=== PATIENT | female | born 1970 | race Hispanic/Latino ===

== ENCOUNTER 2018-11-08 07:32 | Emergency (ER) | payer MEDICAID, OTHER ==
--- NOTE | 2018-11-08 10:33 | Emergency Department Report ---
HPI - General Chief Complaint: Nausea/Vomiting/Diarrhea Time Seen by Provider: 11/08/18 10:24 - HPI HPI: Room 25 The patient is a 47-year-old female presenting with the chief complaint of food impaction. The patient states for 2 years she said difficulty swallowing as it frequently feels as though food gets stuck (usually after consuming alcohol). Yesterday at approximately 15:00 the patient states she was eating ribs and again encountered the difficulty swallowing. She states it felt as though the food got stuck so she vomited only a small amount of the food came out. Patient states he still feels as though there is food stuck in her esophagus. Patient states since 15:00 she's been unable to tolerate anything by mouth including water. The patient states she's never seen a physician about the above complaints in the past Location: GI system Duration: [See above] Quality: Feels as though food is stuck in her esophagus Severity: [See above] Modifying factors: [see above] Context: [see above] Mode of transportation: [not driving] ED Past Medical Hx - Past Medical History Previous Medical History?: No - Surgical History Past Surgical History?: No - Family History Family history: no significant - Social History Smoking Status: Never Smoker Substance Use Type: None (denies illicit drug use), Alcohol (occasional) - Medications Home Medications: Home Medications Medication Instructions Recorded Confirmed Last Taken Type Famotidine [Pepcid] 20 mg PO BID #30 tablet 11/08/18 Unknown Rx ED Review of Systems ROS: Stated complaint: MEAT STUCK IN THROAT Other details as noted in HPI Constitutional: no symptoms reported Eyes: denies: eye pain ENT: denies: throat pain Respiratory: no symptoms reported Cardiovascular: denies: chest pain Endocrine: no symptoms reported Gastrointestinal: vomiting, other (food impaction) Musculoskeletal: denies: back pain Neurological: denies: headache Physical Exam - Physical Exam Vital Signs: Vital Signs 11/08/18 07:54 Temperature 97.7 F Pulse Rate 83 Respiratory 16 Rate Blood Pressure 138/86 O2 Sat by Pulse 98 Oximetry Physical Exam: GENERAL: The patient is well-developed well-nourished female lying on stretcher not appearing to be in acute distress. Holding emesis bag. [] HEENT: Normocephalic. Atraumatic. Extraocular motions are intact. Patient has moist mucous membranes. NECK: Supple. No stridor CHEST/LUNGS: Clear to auscultation. There is no respiratory distress noted. HEART/CARDIOVASCULAR: Regular. There is no tachycardia. There is no gallop rub or murmur. ABDOMEN: Abdomen is soft, nontender. Patient has normal bowel sounds. There is no abdominal distention. SKIN: There is no rash. There is no edema. There is no diaphoresis. NEURO: The patient is awake, alert, and oriented. The patient is cooperative. The patient has normal speech MUSCULOSKELETAL: There is no evidence of acute injury. ED Course Vital Signs 11/08/18 07:54 Temperature 97.7 F Pulse Rate 83 Respiratory 16 Rate Blood Pressure 138/86 O2 Sat by Pulse 98 Oximetry - Consultations Consultation #1: 11/08/18 10:29 Gastroenterology paged 11/08/18 10:32 Case discussed with Tamika-wilfredo roberto Consultation #2: 11/08/18 15:22 Discussed with Tamika-patient may be discharged home with medication for GERD ED Medical Decision Making - Differential Diagnosis food impaction Critical care attestation.: If time is entered above; I have spent that time in minutes in the direct care of this critically ill patient, excluding procedure time. ED Disposition Clinical Impression: Esophageal obstruction due to food impaction Disposition: DC-01 TO HOME OR SELFCARE Is pt being admited?: No Does the pt Need Aspirin: No Condition: Stable Instructions: Food Impaction (ED) Additional Instructions: Return to the emergency department immediately should you develop worsening symptoms, fever, inability to tolerate food or liquid or any other concerns. Prescriptions: Famotidine [Pepcid] 20 mg PO BID #30 tablet Referrals: HERIBERTO KRISHNAN MD [Primary Care Provider] - 3-5 Days ROBLES YANEZ MD [Staff Physician] - 3-5 Days Time of Disposition: 15:23
--- NOTE | 2018-11-08 11:01 | Gastroenterology Consultation ---
<LEO CARRIZALES - Last Filed: 11/08/18 11:02> History of Present Illness - Reason for Consult Consult date: 11/08/18 food impaction Requesting physician: DONTA ESTEVES - History of Present Illness Patient is a 47 y/o female with no significant past medical history who presented to ED with c/o food impaction to which GI has been consulted. This morning patient was resting on stretcher in mild distress 2/2 food impaction and inability to tolerate anything by mouth, even saliva (spitting into emesis bag). She reports dysphagia to solids x 2 years. States she was eating ribs yesterday at approximately 3:00 pm when a piece of meat got stuck in her throat after swallowing and she has been unable to vomit it up after multiple attempts. Admits to associated mild chest discomfort but denies fever, SOB, wt loss, abd pain, signs of bleeding, or LGI symptoms. Has occasional heartburn that is worse after drinking alcohol. Not taking any acid-reflux medication at home. No prior EGD. No Fhx of GI cancers. Past History Past Medical History: No medical history Past Surgical History: No surgical history Social history: other (occasional alcohol ). denies: smoking Medications and Allergies Allergies Allergy/AdvReac Type Severity Reaction Status Date / Time Penicillins Allergy Rash Verified 11/08/18 07:58 Active Meds: Active Medications Sodium Chloride (Nacl 0.9% 1000 Ml) 1,000 mls @ 999 mls/hr IV ONCE ONE Stop: 11/08/18 11:30 medications reviewed/updated as required Review of Systems - Review of Systems All systems: negative Gastrointestinal: vomiting, heartburn, other (food impaction with associated CP) Exam - Constitutional Vital Signs: Temp Pulse Resp BP Pulse Ox 97.7 F 83 16 138/86 98 11/08/18 07:54 11/08/18 07:54 11/08/18 07:54 11/08/18 07:54 11/08/18 07:54 General appearance: mild distress - EENT Eyes: PERRL, EOM intact ENT: hearing intact - Respiratory Respiratory: bilateral: CTA - Cardiovascular Rhythm: regular Heart Sounds: Present: S1 & S2 - Gastrointestinal General gastrointestinal: Present: soft, non-tender, non-distended, normal bowel sounds - Neurologic Neurological: alert and oriented x3 Assessment and Plan 1.food impaction 2.dysphagia 3.GERD -patient reports a hx of dysphagia x 2 years with solids and occasional heartburn, with a piece of meat getting stuck in her esophagus yesterday while eating ribs. -will schedule for EGD today -NPO now -give 1mg of glucagan now -start on PPI -continue supportive care -further recommendations to follow <ROBLES YANEZ - Last Filed: 11/08/18 12:47> Exam - Constitutional Vital Signs: Temp Pulse Resp BP Pulse Ox 97.7 F 81 18 144/86 98 11/08/18 07:54 11/08/18 11:55 11/08/18 11:55 11/08/18 11:55 11/08/18 11:55 - Labs Lab Results: Laboratory Results - last 24 hr 11/08/18 12:35 Urine HCG, Qual Negative Assessment and Plan Pt seen and examined. Likely GERD-induced stricture. Will do EGD. Then, chronic PPI, and f/u as outpatient.
[2018-11-08] MEDS: GLUCAGEN IV ONE ×2 (11:37→12:26)
[2018-11-08] MEDS: PROTONIX IV ONE ×2 (11:37→11:56)
[2018-11-08] MEDS: NACL 0.9% 1000 ML 1,000 ML IV ONE ×2 (11:37→11:56)
[2018-11-08] MEDS ORDERED: GLUCAGEN ONE (12:22)
[2018-11-08 12:30] LABS: HCG Qualitative,Urine Negative (Negative)
--- NOTE | 2018-11-08 12:32 | Anesthesia Consultation ---
Anesthesia Consult and Med Hx Date of service: 11/08/18 - Airway Anesthetic Teeth Evaluation: Good ROM Head & Neck: Adequate Mental/Hyoid Distance: Adequate Mallampati Class: Class II Intubation Access Assessment: Probably Good - Pulmonary Exam CTA: Yes - Cardiac Exam Cardiac Exam: RRR - Pre-Operative Health Status ASA Pre-Surgery Classification: ASA2 Proposed Anesthetic Plan: General - Pulmonary Hx Smoking: No Hx Asthma: No Hx Respiratory Symptoms: No SOB: No - Cardiovascular System Hx Hypertension: No Hx Heart Attack/AMI: No Hx Percutaneous Transluminal Coronary Angioplasty (PTCA): No Hx Cardia Arrhythmia: No - Central Nervous System Hx Seizures: No CVA: No - Gastrointestinal Hx Gastroesophageal Reflux Disease: No (hx occasional dysphagia to solids x2yrs) - Endocrine Hx Renal Disease: No Hx Liver Disease: No Hx Insulin Dependent Diabetes: No Hx Non-Insulin Dependent Diabetes: No Hx Thyroid Disease: No - Other Systems Hx Alcohol Use: Yes (occasional) Hx Substance Use: No Hx Obesity: Yes - Additional Comments Anesthesia Medical History Comments: No hx anesthetic complications. Reports sensation of "food stuck in throat" since 11/07/18 1500 after eating. Unable to tolareate PO since then. Reports nausea and "spitting up." No significant emesis. Will plan GETA/RSI given aspiration risk.
--- NOTE | 2018-11-08 12:33 | Anesthesia Day of Surgery ---
Anesthesia Day of Surgery - Day of Surgery Patient Examined: Yes Patient H&P Reviewed: Yes Patient is NPO: Yes (see anes consult note for details) Beta Blockers: No
[2018-11-08] MEDS ORDERED: SUBLIMAZE ONE (12:50)
[2018-11-08] MEDS ORDERED: DIPRIVAN 10 MG/ML IV ONE (12:51)
[2018-11-08] MEDS ORDERED: PROVENTIL IH PRN (13:20)
[2018-11-08] MEDS ORDERED: PROVENTIL IH ONE (13:26)
[2018-11-08 15:14] VITALS: BP 137/73
--- NOTE | 2018-11-08 15:24 | Post Anesthesia Evaluation ---
- Post Anesthesia Evaluation Patient Participated: Yes Airway Patent: Yes Stable Respiratory Function: Yes Nausea/Vomiting: No Temp > 96.8F: Yes Pain Manageable: Yes Adequeate Hydration: Yes Anesthesia Complications: No Other Comments: Patient experienced significant coughing post-extubation without hypoxia. Provided additional hx of "mild" asthma and "rare" smoking. Symptoms improved with albuterol neb. Transferred back to ED for further care and final disposition.
--- NOTE | 2018-11-08 17:35 | Post Operative Note ---
Pre-op diagnosis: Esophageal food impaction Post-op diagnosis: same (2. Distal esophageal stenosis) Findings: 1. Food bolus encountered in esophagus at 38 cm, rib meat with cartilage. Removed with snare. 2. Mild distal esophageal stenosis at Z-line at 40 cm from incisors. 3. Otherwise normal EGD. Procedure: EGD with food bolus removal Anesthesia: CATINA Surgeon: ROBLES YANEZ Estimated blood loss: none Pathology: none Condition: stable Disposition: PACU (May be discharged after recovery, and follow up as outpatient. Go home on chronic PPI.)
--- NOTE | 2018-11-08 17:57 | Operative Report ---
UPPER ENDOSCOPY REPORT PROCEDURE: Upper endoscopy with food bolus removal. PREOPERATIVE DIAGNOSIS: Food impaction of distal esophagus. POSTOPERATIVE DIAGNOSIS: Food impaction of distal esophagus and distal esophageal stenosis. SEDATION: General anesthesia with endotracheal intubation by Anesthesia. HISTORY: The patient is a 47-year-old woman with a 2-year history of intermittent dysphagia to solids. Yesterday, she ate barbecued ribs and developed food impaction with inability to swallow saliva. DESCRIPTION OF PROCEDURE: Indications, risks, and benefits were explained and consent was obtained. The patient was sedated and intubated. [employer] video upper endoscope was passed through the mouth and oropharynx into the distal esophagus where a food bolus was encountered, which precluded further scope passage. This had to be manually removed using a snare and came out primarily in one large chunk, which showed gristle or cartilage in it. Subsequently, scope was reintroduced and passed into the descending duodenum and then gradually withdrawn with close inspection of mucosa. FINDINGS: 1. Food impaction in distal esophagus -- removed. 2. Mild distal esophageal stenosis at 40 cm from the incisors, at the site of the Z-line, through which the scope passed readily. 3. Otherwise, normal esophagus. 4. Normal appearing gastric antrum, fundus, body, and cardia. 5. Normal appearing duodenal bulb and duodenum. The patient tolerated the procedure well without immediate complication. IMPRESSION: 1. Distal esophageal stenosis -- with food bolus impaction -- removed. 2. Otherwise, normal endoscopy. PLAN: 1. Chronic proton pump inhibitors for now. 2. Follow up as an outpatient in several weeks for repeat endoscopy and dilation. JOB# [id number] HRC/NTS
== END 2018-11-08 15:43 | disposition home or self-care (01) ==
LOC: ED 07:32
DX: T18.120A Food in esophagus causing compression of trachea, initial encounter (principal); Z88.0 Allergy status to penicillin; X58.XXXA Exposure to other specified factors, initial encounter; Y93.89 Activity, other specified; Y92.89 Other specified places as the place of occurrence of the external cause; Y99.8 Other external cause status
CPT/HCPCS: 43247; 81025; 96361; 96374; 99283; C9113; J2704; J3010; J7030; J1610

== ENCOUNTER 2019-01-14 06:38 | Emergency (ER) | payer MEDICAID ==
[2019-01-14 06:49] VITALS: BP 166/81
--- NOTE | 2019-01-14 07:59 | Emergency Department Report ---
ED Upper Extremity Inj HPI - General Chief Complaint: Extremity Injury, Upper Stated Complaint: LEFT ARM NUMBNESS Time Seen by Provider: 01/14/19 07:42 Source: patient Mode of arrival: Ambulatory Limitations: No Limitations - History of Present Illness Initial Comments: This is a 48-year-old female presents with left shoulder pain radiating to fingers for one day. Patient states yesterday afternoon she started feeling pain in the left shoulder radiating to her fingers. She is now complaining of some numbness and tingling to the tips of fingers and pain to before meals joint with range of motion. He currently reports pain is 5 out of 10 on pain scale and a shooting achy sensation. Patient denies recent injury, warmth, swelling, weakness. MD Complaint: Injury to:: left, shoulder Onset/Timin -: days(s) Other Extremity Injury: Shoulder: Left Other Injuries: none Handedness: right Place: home Severity scale (0 -10): 5 Improves With: immobilization Worsens With: movement of extremity Associated Symptoms: numbness Treatments Prior to Arrival: NSAIDS - Related Data Previous Rx's Medication Instructions Recorded Last Taken Type Famotidine [Pepcid] 20 mg PO BID #30 tablet 11/08/18 Unknown Rx Naproxen [Naprosyn] 500 mg PO TID PRN #15 tablet 01/14/19 Unknown Rx Allergies Allergy/AdvReac Type Severity Reaction Status Date / Time Penicillins Allergy Rash Verified 11/08/18 07:58 ED Review of Systems ROS: Stated complaint: LEFT ARM NUMBNESS Other details as noted in HPI Constitutional: denies: chills, fever Respiratory: denies: cough, shortness of breath, wheezing Cardiovascular: denies: chest pain, palpitations Gastrointestinal: denies: abdominal pain, nausea, diarrhea Musculoskeletal: arthralgia (left shoulder). denies: back pain, joint swelling Skin: denies: rash, lesions Neurological: denies: headache, weakness, paresthesias Psychiatric: denies: anxiety, depression ED Past Medical Hx - Past Medical History Previous Medical History?: No Hx Hypertension: No Hx Heart Attack/AMI: No Hx Liver Disease: No Hx Renal Disease: No Hx Seizures: No Hx Asthma: No - Surgical History Past Surgical History?: No - Social History Smoking Status: Never Smoker Substance Use Type: None - Medications Home Medications: Home Medications Medication Instructions Recorded Confirmed Last Taken Type Famotidine [Pepcid] 20 mg PO BID #30 tablet 11/08/18 Unknown Rx Naproxen [Naprosyn] 500 mg PO TID PRN #15 tablet 01/14/19 Unknown Rx ED Physical Exam - General Limitations: No Limitations General appearance: alert, in no apparent distress, obese - Respiratory Respiratory exam: Present: normal lung sounds bilaterally. Absent: respiratory distress - Cardiovascular Cardiovascular Exam: Present: regular rate, normal rhythm. Absent: systolic murmur, diastolic murmur, rubs, gallop - GI/Abdominal GI/Abdominal exam: Present: soft, normal bowel sounds - Expanded Upper Extremity Exam Left Shoulder Exam: Present: full ROM (painful range of motion), crepidus, tenderness over AC joint. Absent: swelling, abrasion, laceration, ecchymosis, deformity, dislocation, erythema Upper Arm exam: Present: normal inspection, full ROM Elbow exam: Present: normal inspection, full ROM Forearm Wrist exam: Present: normal inspection, full ROM Hand Wrist exam: Present: normal inspection, full ROM Neuro motor exam: Present: wrist extension intact, thumb opposition intact, thumb IP flexion intact, thumb adduction intact, fingers 2-5 abduction intact Neurosensory exam: Present: radial nerve intact, ulnar nerve intact, median ne rve intact Vascular: Present: normal capillary refill, radial pulse (+2) - Back Exam Back exam: Present: normal inspection - Neurological Exam Neurological exam: Present: alert, oriented X3, normal gait - Psychiatric Psychiatric exam: Present: normal affect, normal mood - Skin Skin exam: Present: warm, dry, intact, normal color. Absent: rash ED Course Vital Signs 01/14/19 06:45 Temperature 97.9 F Pulse Rate 74 Respiratory 18 Rate Blood Pressure 166/81 O2 Sat by Pulse 98 Oximetry ED Medical Decision Making - Radiology Data Radiology results: report reviewed LEFT SHOULDER, 3 VIEWS: History: Acromioclavicular joint pain. Routine views demonstrate normal bony and soft tissue structures with normal joint alignment of the shoulder. IMPRESSION: Normal study. No abnormality is detected at the a.c. joint. - Medical Decision Making Patient was examined by me. Vitals are normal and patient is in no acute distress. Obtained a x-ray of left shoulder. X-ray dictated by radiologist report reviewed by myself. Normal study. No abnormality is detected at the a.c. joint. Muscle strain. Patient informed of results. Start naproxen for pain. Referral to orthopedics for continued care. Plan discussed with patient to discharge home and treat outpatient. She agree with ER plan. Patient discharged home in stable condition. Follow up with PCP in 2-3 days. Critical care attestation.: If time is entered above; I have spent that time in minutes in the direct care of this critically ill patient, excluding procedure time. ED Disposition Clinical Impression: Acute pain of left shoulder Muscle strain of left shoulder Qualifiers: Encounter type: initial encounter Qualified Code(s): S46.912A - Strain of unspecified muscle, fascia and tendon at shoulder and upper arm level, left arm, initial encounter Disposition: TO HOME OR SELFCARE Is pt being admited?: No Does the pt Need Aspirin: No Condition: Stable Instructions: Muscle Strain (ED), Arthralgia (ED) Additional Instructions: Rest Use ice or heat on affected area for 20 minutes and off for 2 hours. Take pain medication 8 hours as needed for pain. Follow up with Primary Care Provider in 2-3 days. Prescriptions: Naproxen [Naprosyn] 500 mg PO TID PRN #15 tablet PRN Reason: Pain , Severe (7-10) Referrals: [facility] MD NANCY [Primary Care Provider] - 3-5 Days MEHREEN HUGGINS MD [Staff Physician] - 3-5 Days ALLEN HUNT MD [Staff Physician] - 3-5 Days Time of Disposition: 08:42
--- NOTE | 2019-01-14 08:21 | XRay Report ---
LEFT SHOULDER, 3 VIEWS: History: Acromioclavicular joint pain. Routine views demonstrate normal bony and soft tissue structures with normal joint alignment of the shoulder. IMPRESSION: Normal study. No abnormality is detected at the a.c. joint.
== END 2019-01-14 08:59 | disposition home or self-care (01) ==
LOC: ED 06:38
DX: S46.912A Strain of unspecified muscle, fascia and tendon at shoulder and upper arm level, left arm, initial encounter (principal); Z88.0 Allergy status to penicillin; X58.XXXA Exposure to other specified factors, initial encounter; Y93.89 Activity, other specified; Y92.89 Other specified places as the place of occurrence of the external cause; Y99.8 Other external cause status
CPT/HCPCS: 99283

== ENCOUNTER 2019-07-29 23:36 | Observation (INO) | payer MEDICAID ==
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
[2019-07-30] MEDS ORDERED: ONDANSETRON 4 MG/2 ML INJ IV ONE (00:29)
[2019-07-30] MEDS ORDERED: GLUCAGON (HUMAN RECOMBINANT) 1 MG/ML INJ IV ONE (00:29)
--- NOTE | 2019-07-30 01:22 | XRay Report ---
SOFT TISSUES OF THE NECK 2 VIEWS 2358 INDICATION: foreign body COMPARISON: None available. FINDINGS: Metal rings could not be removed. No soft tissue swelling is seen. No obvious foreign body is identified. Signer Name: Adryan Asif MD Signed: 07/30/2019 1:18 AM Workstation Name: [id number]
[2019-07-30 01:23] LABS: Hematocrit 37.6 % (30.3-42.9); Hemoglobin 12.2 gm/dl (10.1-14.3); Mean Corpuscular HGB Conc 33 % (30-34); Mean Corpuscular Volume 78 fl (79-97); Platelet Count 280 K/mm3 (140-440); Red Blood Count 4.85 M/mm3 (3.65-5.03); Red Cell Distribution Width 17.1 % (13.2-15.2)
[2019-07-30 01:35] LABS: BUN/Creatinine Ratio 20; Blood Urea Nitrogen 10 mg/dL (7-17); Hemolysis Index 11; INR 0.99 (0.87-1.13)
[2019-07-30 01:36] LABS: Partial Thromboplastin Time 25.1 Sec. (24.2-36.6)
[2019-07-30] MEDS ORDERED: ONDANSETRON 4 MG/2 ML INJ IV PRN (02:04)
[2019-07-30] MEDS ORDERED: ACETAMINOPHEN 325 MG TAB PO PRN (02:04)
[2019-07-30] MEDS ORDERED: MORPHINE 2 MG/1 ML INJ IV PRN (02:05)
--- NOTE | 2019-07-30 02:18 | History and Physical Report ---
<SHELIAMICKY N. - Last Filed: 07/30/19 02:53> History of Present Illness Date of examination: 07/30/19 Date of admission: 07/30/2019 Chief complaint: Foreign-body in throat History of present illness: 48-year-old female with history of asthma, toxic shock, mild esophageal stenosis who presents [facility] ED with complaints of foreign body stuck in throat. Patient states that she was having a piece of steak and was unable to clear her throat after swallowing. She tried drinking a glass of water but still felt like something was stuck in her throat. She has been unable to clear her throat and continues to bring up excessive saliva with occasional dry heaves. She states that roughly 6 months ago she had a similar episode when a piece of rib was stuck in her throat. She required an EDG which was performed by Dr. Vaughan. He was unable to dilate her because of throat irritation. Denies; n/v, cough, fever, chest pain, SOB Past History Past Medical History: other (asthma, toxic shock) Past Surgical History: No surgical history Social history: lives with family Family history: no significant family history Medications and Allergies Allergies Allergy/AdvReac Type Severity Reaction Status Date / Time Penicillins Allergy Rash Verified 11/08/18 07:58 Home Medications Medication Instructions Recorded Confirmed Last Taken Type Famotidine [Pepcid] 20 mg PO BID #60 tablet 07/30/19 Unknown Rx Active Meds: Active Medications Acetaminophen (Tylenol) 650 mg PO Q4H PRN PRN Reason: Pain MILD(1-3)/Fever >100.5/WIGGINS Enoxaparin Sodium (Enoxaparin) 40 mg SUB-Q QDAY@1000 EMIL Famotidine (Pepcid) 20 mg IV BID EMIL Sodium Chloride (Nacl 0.9% 1000 Ml) 1,000 mls @ 75 mls/hr IV DIRECT EMIL Stop: 07/30/19 11:00 Morphine Sulfate (Morphine) 2 mg IV Q4H PRN PRN Reason: Pain, Moderate (4-6) Ondansetron HCl (Zofran) 4 mg IV Q6H PRN PRN Reason: Nausea And Vomiting Sodium Chloride (Sodium Chloride Flush Syringe 10 Ml) 10 ml IV BID EMIL Sodium Chloride (Sodium Chloride Flush Syringe 10 Ml) 10 ml IV PRN PRN PRN Reason: LINE FLUSH Review of Systems All systems: negative Gastrointestinal: other (take stuck in throat, dry heaving, excessive saliva) Exam - Physical Exam Narrative exam: General appearance: Present: No acute distress, alert and oriented history, well-developed, pleasant, well-nourished, adult female - EENT Eyes: Present: PERRL, EOM intact ENT: hearing intact, normal dentition - Neck Neck: Present: supple, normal ROM - Respiratory Respiratory effort: Non-labored Respiratory: bilateral: CTA - Cardiovascular Heart rate:91 (bpm) Rhythm:SR Heart Sounds: Present: S1, S2. - Extremities Extremities: no ischemia, pulses intact - Peripheral Assessment Peripheral Pulses: within normal limits - Abdominal General gastrointestinal: Obese, soft, non-tender, normal bowel sounds, - Integumentary Integumentary: Present: warm, dry - Musculoskeletal Musculoskeletal: able to move all extremities -Neurological Neurological: CN II-XII grossly intact - Psychiatric Psychiatric: cooperative - Constitutional Vitals: Temp Pulse Resp BP Pulse Ox 99.2 F 91 H 18 143/92 99 07/29/19 23:41 07/29/19 23:41 07/30/19 00:11 07/29/19 23:41 07/30/19 00:11 Results - Labs CBC & Chem 7: 07/30/19 01:02 07/30/19 01:02 Labs: Laboratory Last Values WBC 10.7 K/mm3 (4.5-11.0) 07/30/19 01:02 RBC 4.85 M/mm3 (3.65-5.03) 07/30/19 01:02 Hgb 12.2 gm/dl (10.1-14.3) 07/30/19 01:02 Hct 37.6 % (30.3-42.9) 07/30/19 01:02 MCV 78 fl (79-97) L 07/30/19 01:02 MCH 25 pg (28-32) L 07/30/19 01:02 MCHC 33 % (30-34) 07/30/19 01:02 RDW 17.1 % (13.2-15.2) H 07/30/19 01:02 Plt Count 280 K/mm3 (140-440) 07/30/19 01:02 PT 13.0 Sec. (12.2-14.9) 07/30/19 01:02 INR 0.99 (0.87-1.13) 07/30/19 01:02 APTT 25.1 Sec. (24.2-36.6) 07/30/19 01:02 Sodium 142 mmol/L (137-145) 07/30/19 01:02 Potassium 3.6 mmol/L (3.6-5.0) 07/30/19 01:02 Chloride 102.6 mmol/L (98-107) 07/30/19 01:02 Carbon Dioxide 26 mmol/L (22-30) 07/30/19 01:02 Anion Gap 17 mmol/L 07/30/19 01:02 BUN 10 mg/dL (7-17) 07/30/19 01:02 Creatinine 0.5 mg/dL (0.7-1.2) L 07/30/19 01:02 Estimated GFR > 60 ml/min 07/30/19 01:02 BUN/Creatinine Ratio 20 % 07/30/19 01:02 Glucose 101 mg/dL (65-100) H 07/30/19 01:02 Calcium 9.0 mg/dL (8.4-10.2) 07/30/19 01:02 - Imaging and Cardiology Imaging and Cardiology: XR Neck Soft Tissue: FINDINGS: Metal rings could not be removed. No soft tissue swelling is seen. No obvious foreign body is identified. Assessment and Plan Assessment and plan: 48-year-old female with history of asthma, toxic shock, mild esophageal stenosis who presents [facility] ED with complaints of foreign body stuck in throat after consuming steak for dinner. Foreign body in throat -XR Neck Soft Tissue did not reveal any obvious foreign bodies or soft tissue swelling -Per pt a steak got stuck in her throat -on IVF -Nothing by mouth -Continue supportive care -GI consult it and is following with plans for EGD today Elevated BP -Initial BP 143/92 -No hx of HTN -Continue to monitor BP Hx Asthma -Albuterol when necessary DVT PPX -on Lovenox Advance Directives: No VTE prophylaxis?: Chemical Plan of care discussed with patient/family: Yes <RAMILA COLES - Last Filed: 07/31/19 02:19> History of Present Illness Date of admission: 07/30/19 03:37 Medications and Allergies Active Meds: Active Medications Acetaminophen (Tylenol) 650 mg PO Q4H PRN PRN Reason: Pain MILD(1-3)/Fever >100.5/WIGGINS Albuterol (Proventil) 2.5 mg IH Q4HRT PRN PRN Reason: Shortness Of Breath Famotidine (Pepcid) 20 mg IV BID EMIL Sodium Chloride (Nacl 0.9% 1000 Ml) 1,000 mls @ 75 mls/hr IV DIRECT EMIL Stop: 07/30/19 11:00 Morphine Sulfate (Morphine) 2 mg IV Q4H PRN PRN Reason: Pain, Moderate (4-6) Ondansetron HCl (Zofran) 4 mg IV Q6H PRN PRN Reason: Nausea And Vomiting Sodium Chloride (Sodium Chloride Flush Syringe 10 Ml) 10 ml IV BID EMIL Sodium Chloride (Sodium Chloride Flush Syringe 10 Ml) 10 ml IV PRN PRN PRN Reason: LINE FLUSH Exam - Constitutional Vitals: Temp Pulse Resp BP Pulse Ox 98.4 F 68 16 120/68 98 07/30/19 02:22 07/30/19 02:22 07/30/19 02:22 07/30/19 02:22 07/30/19 02:22 Results - Labs CBC & Chem 7: 07/30/19 01:02 07/30/19 01:02 Labs: Laboratory Last Values WBC 10.7 K/mm3 (4.5-11.0) 07/30/19 01:02 RBC 4.85 M/mm3 (3.65-5.03) 07/30/19 01:02 Hgb 12.2 gm/dl (10.1-14.3) 07/30/19 01:02 Hct 37.6 % (30.3-42.9) 07/30/19 01:02 MCV 78 fl (79-97) L 07/30/19 01:02 MCH 25 pg (28-32) L 07/30/19 01:02 MCHC 33 % (30-34) 07/30/19 01:02 RDW 17.1 % (13.2-15.2) H 07/30/19 01:02 Plt Count 280 K/mm3 (140-440) 07/30/19 01:02 PT 13.0 Sec. (12.2-14.9) 07/30/19 01:02 INR 0.99 (0.87-1.13) 07/30/19 01:02 APTT 25.1 Sec. (24.2-36.6) 07/30/19 01:02 Sodium 142 mmol/L (137-145) 07/30/19 01:02 Potassium 3.6 mmol/L (3.6-5.0) 07/30/19 01:02 Chloride 102.6 mmol/L (98-107) 07/30/19 01:02 Carbon Dioxide 26 mmol/L (22-30) 07/30/19 01:02 Anion Gap 17 mmol/L 07/30/19 01:02 BUN 10 mg/dL (7-17) 07/30/19 01:02 Creatinine 0.5 mg/dL (0.7-1.2) L 07/30/19 01:02 Estimated GFR > 60 ml/min 07/30/19 01:02 BUN/Creatinine Ratio 20 % 07/30/19 01:02 Glucose 101 mg/dL (65-100) H 07/30/19 01:02 Calcium 9.0 mg/dL (8.4-10.2) 07/30/19 01:02 Assessment and Plan Assessment and plan: 48 year old woman with no medical problems comes emergency room because while she was eating steak and shrimp, a piece of steak got stuck in her throat she is unable to vomit it out. GI was consulted to see the patient for food impaction. Agree with plan as stated above, patient seen and examined, discussed with RETAIL PLANNING MANAGER,
[2019-07-30] MEDS ORDERED: ALBUTEROL 2.5 MG/3 ML NEBU IH PRN (02:54)
[2019-07-30] MEDS ORDERED: SODIUM CHLORIDE 0.9% 1000 ML 1,000 ML ONE ×2 (04:26→07:48)
[2019-07-30] MEDS ORDERED: ACETAMINOPHEN 325 MG TAB ONE (04:27)
[2019-07-30] MEDS: SODIUM CHLORIDE 0.9% 1000 ML 1,000 ML IV SCH ×2 (04:30→04:48)
[2019-07-30] MEDS ORDERED: WATER FOR IRRIG STERILE 250 ML BOTTLE IR ONE (07:12)
[2019-07-30] MEDS ORDERED: PROPOFOL 200 MG/20 ML VIAL IV ONE (07:45)
--- NOTE | 2019-07-30 07:46 | Consultation ---
History of Present Illness - Reason for Consult Consult date: 07/30/19 Dysphagia/food impaction Requesting physician: MICKY BASS - History of Present Illness Pt with 3 yr hx of intermittent dysphagia to solids, with heartburn, on no meds, admitted with hx of steak sticking in chest last night. Received glucagon in ER, and notes that she spit up some food and has been able to tolerate secretions ever since. Still has mild substernal discomfort. Pt had food impaction removed 11/2018. No CP, SOB, weight loss, GI bleed. Past History Past Medical History: other (asthma, toxic shock) Past Surgical History: No surgical history Social history: lives with family. denies: smoking, alcohol abuse Family history: no significant family history Medications and Allergies Allergies Allergy/AdvReac Type Severity Reaction Status Date / Time Penicillins Allergy Rash Verified 11/08/18 07:58 Home Medications Medication Instructions Recorded Confirmed Last Taken Type Famotidine [Pepcid] 20 mg PO BID #30 tablet 11/08/18 07/30/19 Unknown Rx Naproxen [Naprosyn] 500 mg PO TID PRN #15 tablet 01/14/19 07/30/19 Unknown Rx Active Meds: Active Medications Acetaminophen (Tylenol) 650 mg PO Q4H PRN PRN Reason: Pain MILD(1-3)/Fever >100.5/WIGGINS Last Admin: 07/30/19 04:30 Dose: 650 mg Documented by: Albuterol (Proventil) 2.5 mg IH Q4HRT PRN PRN Reason: Shortness Of Breath Famotidine (Pepcid) 20 mg IV BID EMIL Sodium Chloride (Nacl 0.9% 1000 Ml) 1,000 mls @ 75 mls/hr IV DIRECT EMIL Stop: 07/30/19 11:00 Last Admin: 07/30/19 04:48 Dose: 75 mls/hr Documented by: Sodium Chloride (Nacl 0.9% 1000 Ml) 1,000 mls @ 50 mls/hr IV DIRECT EMIL Morphine Sulfate (Morphine) 2 mg IV Q4H PRN PRN Reason: Pain, Moderate (4-6) Ondansetron HCl (Zofran) 4 mg IV Q6H PRN PRN Reason: Nausea And Vomiting Sodium Chloride (Sodium Chloride Flush Syringe 10 Ml) 10 ml IV BID EMIL Sodium Chloride (Sodium Chloride Flush Syringe 10 Ml) 10 ml IV PRN PRN PRN Reason: LINE FLUSH Review of Systems All systems: negative (as noted) Exam - Constitutional Vitals: Temp Pulse Resp BP Pulse Ox 98.2 F 84 19 129/86 98 07/30/19 05:40 07/30/19 05:40 07/30/19 05:40 07/30/19 05:40 07/30/19 05:40 General appearance: Present: no acute distress - EENT Eyes: Present: PERRL, EOM intact ENT: hearing intact - Neck Neck: Present: supple, normal ROM - Respiratory Respiratory effort: normal Respiratory: bilateral: CTA - Cardiovascular Rhythm: regular Heart Sounds: Present: S1 & S2 - Extremities Extremities: No edema - Abdominal General gastrointestinal: Present: soft, non-tender Results - Labs CBC & Chem 7: 07/30/19 01:02 07/30/19 01:02 Labs: Abnormal lab results 07/30/19 07/30/19 Range/Units 01:02 01:02 MCV 78 L (79-97) fl MCH 25 L (28-32) pg RDW 17.1 H (13.2-15.2) % Creatinine 0.5 L (0.7-1.2) mg/dL Glucose 101 H (65-100) mg/dL Assessment and Plan 1. Food impaction/dysphagia - likely resolved. Certainly no total obstruction. - Will do EGD/disimpaction if needed, and dilation - then, chronic PPI
--- NOTE | 2019-07-30 07:53 | Anesthesia Day of Surgery ---
Anesthesia Day of Surgery - Day of Surgery Patient Examined: Yes Patient H&P Reviewed: Yes Patient is NPO: Yes
--- NOTE | 2019-07-30 07:55 | Anesthesia Consultation ---
Anesthesia Consult and Med Hx Date of service: 07/30/19 - Airway Anesthetic Teeth Evaluation: Good ROM Head & Neck: Adequate Mental/Hyoid Distance: Adequate Mallampati Class: Class II Intubation Access Assessment: Probably Good - Pre-Operative Health Status ASA Pre-Surgery Classification: ASA2, Emergency Proposed Anesthetic Plan: MAC - Pulmonary Hx Smoking: No Hx Asthma: Yes Hx Respiratory Symptoms: No SOB: No Hx Pneumonia: No - Cardiovascular System Hx Hypertension: Yes (Off her diuretic) Hx Heart Attack/AMI: No Hx Percutaneous Transluminal Coronary Angioplasty (PTCA): No Hx Cardia Arrhythmia: No - Central Nervous System Hx Seizures: No CVA: No Hx Psychiatric Problems: No - Gastrointestinal Hx Gastroesophageal Reflux Disease: No (hx occasional dysphagia to solids x2yrs) - Endocrine Hx Renal Disease: No Hx Liver Disease: No Hx Insulin Dependent Diabetes: No Hx Non-Insulin Dependent Diabetes: No Hx Thyroid Disease: No - Other Systems Hx Alcohol Use: Yes (occasional) Hx Substance Use: No Hx Cancer: No Hx Obesity: Yes - Additional Comments Anesthesia Medical History Comments: Had similar episode [id number]
--- NOTE | 2019-07-30 07:59 | Post Operative Note ---
Pre-op diagnosis: Dysphagia, substernal chest discomfort Post-op diagnosis: other (Esophageal food impaction, hiatal hernia, distal esoph ageal stricture - ulcerated) Findings: 1. Food impaction at 32 cm from gums - dislodged with scope. 2. Eroded stricture located 35 cm from gums through which scope passed readily. 3. 5 cm hiatal hernia. 4. Otherwise normal EGD. Procedure: EGD with food disimpaction Anesthesia: MAC Surgeon: ROBLES YANEZ Estimated blood loss: none Pathology: none Condition: stable Disposition: floor (May discharge home on oral PPI daily, with outpatient GI f/u in 2-3 wks, for dilation.)
[2019-07-30] MEDS ORDERED: LIDOCAINE MPF (2%) 20 MG/1 ML VIAL 5 ML ONE (08:00)
--- NOTE | 2019-07-30 08:54 | Post Anesthesia Evaluation ---
- Post Anesthesia Evaluation Patient Participated: Yes Airway Patent: Yes Stable Respiratory Function: Yes Nausea/Vomiting: No Temp > 96.8F: Yes Pain Manageable: Yes Adequeate Hydration: Yes Anesthesia Complications: No Block Receding Appropriately: Not Applicable Patient on Ventilator: No
--- NOTE | 2019-07-30 09:10 | Operative Report ---
PROCEDURE: Upper endoscopy. PREOPERATIVE DIAGNOSIS: Food impaction/dysphagia. POSTOPERATIVE DIAGNOSIS: Food impaction with eroded or ulcerated distal esophageal stricture and hiatal hernia. SEDATION: MAC by Anesthesia. HISTORY: The patient is a 48-year-old woman with a 3 year history of intermittent dysphagia to solids who presented with steak food impaction last night. She received glucagon in the Emergency Room and was subsequently able to handle her secretions, but still had discomfort. She presents for evaluation. DESCRIPTION OF PROCEDURE: Indications, risks, and benefits were explained and consent was obtained. The patient was placed in left lateral decubitus position and sedated. Video upper endoscope was passed through the mouth and oropharynx into the distal esophagus where a meat bolus was encountered obstructing the lumen. This was dislodged into the stomach with gentle pressure, with ease. Scope was then advanced into the descending duodenum and then gradually withdrawn with close inspection of mucosa. FINDINGS: 1. Meat impaction in distal esophagus -- dislodged. 2. Ring like stricture with ulcerated rim located at 35 cm from the gums, through which the scope passed readily. 3. A 5 cm hiatal hernia from 35-40 cm. 4. Remainder of esophagus is normal appearing. 5. Normal appearing gastric antrum, fundus, body and cardia. 6. Normal appearing duodenal bulb and duodenum. The patient tolerated the procedure well without immediate complication. IMPRESSION: 1. Food impaction -- dislodged. 2. Ulcerated stricture. 3. Hiatal hernia. RECOMMENDATIONS: 1. Proton pump inhibitors on a daily basis. 2. Lifestyle changes to reduce likelihood of a food impaction by cutting food up into small bites. 3. Repeat upper endoscopy with dilation in 2-4 weeks. JOB# [id number] HRC/NTS
[2019-07-30] MEDS ORDERED: FAMOTIDINE 20 MG/2 ML INJ IV SCH (10:00)
[2019-07-30] MEDS ORDERED: ENOXAPARIN 40 MG/0.4 ML INJ SUB-Q SCH (10:00)
[2019-07-30] MEDS ORDERED: SODIUM CHLORIDE 0.9% 1000 ML 1,000 ML IV SCH (10:00)
[2019-07-30 12:10] VITALS: BP 144/66
--- NOTE | 2019-07-30 15:06 | Discharge Summary ---
Providers - Providers Date of Admission: 07/30/19 03:37 Date of discharge: 07/30/19 Attending physician: LEELEE CRANE 07/30/19 00:34 Consult to Physician [CONS] Stat Comment: Consulting Provider: ROBLES YANEZ Physician Instructions: Reason For Exam: foreign body throat Primary care physician: PROGRAM CLINICIAN Hospitalization Reason for admission: Dysphagia/food impaction esophagus Condition: Stable Pertinent studies: Neck xray: soft tissue EGD Procedures: EGD Hospital course: 48-year-old female with history of asthma, toxic shock, mild esophageal stenosis who presents [facility] ED with complaints of foreign body stuck in throat. Patient states that she was having a piece of steak and was unable to clear her throat after swallowing. She tried drinking a glass of water but still felt like something was stuck in her throat. Admitted placed on NPO status,evaluated by GI had endoscopy Pre-op diagnosis: Dysphagia, substernal chest discomfort EGD: (Esophageal food impaction, hiatal hernia, distal esophageal stricture - ulcerated) Findings: 1. Food impaction at 32 cm from gums - dislodged with scope. 2. Eroded stricture located 35 cm from gums through which scope passed readily. 3. 5 cm hiatal hernia. 4. Otherwise normal EGD. Patient started on oral nutrition Today patient feels betterno new complaints,vital signs stable Cleared gy GI to DC and f/u per schedule. Stable at discharge, Discharge Diagnosis: --Foreign body in throat GI eveluated s/p EGD --Hypertension:mod controlled Cont current antihypertensives and PRN meds --Hx Asthma Albuterol when necessary Stable at discharge Disposition: DC-01 TO HOME OR SELFCARE Time spent for discharge: 32 min Core Measure Documentation - Palliative Care Palliative Care/ Comfort Measures: Not Applicable - Core Measures Any of the following diagnoses?: none Exam - Constitutional Vitals: Temp Pulse Resp BP Pulse Ox 98.3 F 75 22 144/66 97 07/30/19 11:26 07/30/19 11:26 07/30/19 11:26 07/30/19 11:26 07/30/19 11:26 General appearance: Present: no acute distress, well-nourished - EENT Eyes: Present: PERRL, EOM intact - Neck Neck: Present: supple, normal ROM - Respiratory Respiratory effort: normal Respiratory: bilateral: diminished, negative: rales, rhonchi, wheezing - Cardiovascular Rhythm: regular Heart Sounds: Present: S1 & S2 - Extremities Extremities: no ischemia, No edema - Abdominal General gastrointestinal: Present: soft, non-tender, non-distended, normal bowel sounds - Integumentary Integumentary: Present: clear, warm - Musculoskeletal Musculoskeletal: strength equal bilaterally, generalized weakness - Psychiatric Psychiatric: appropriate mood/affect, cooperative - Neurologic Neurologic: moves all extremities Plan Activity: no restrictions Diet: regular (as tolerated) Additional Instructions: Regular diet as tolerated. If you do not tolerate regular diet, mechanical soft /chopped meats Follow up with: PRIMARY CARE, [Primary Care Provider] - 3-5 Days ROBLES YANEZ MD [Staff Physician] - 14 Days Forms: Work/School Release Form Prescriptions: Famotidine [Pepcid] 20 mg PO BID #60 tablet
[2019-07-30 15:32] LABS: HCG Qualitative,Urine Negative (Negative)
[2019-07-30 15:33] LABS: Bacteria,Urine 1+ /HPF (Negative); Bilirubin,Urine NEG (Negative); Blood,Urine NEG (Negative); Color,Urine Yellow (Yellow); Mucus,Urine 2+ /HPF; Protein,Urine <15 mg/dL mg/dL (Negative); WBC,Urine < 1.0 /HPF (0.0-6.0)
== END 2019-07-30 16:54 | disposition home or self-care (01) ==
LOC: ED 23:36 → INTOOBSV 07-30 03:37 → 3A 07-30 03:37
PROVIDERS: ADMIT Internal Medicine; ATTEND Internal Medicine
DX: T17.228A Food in pharynx causing other injury, initial encounter (principal); K22.10 Ulcer of esophagus without bleeding; J45.909 Unspecified asthma, uncomplicated; K22.2 Esophageal obstruction; K44.9 Diaphragmatic hernia without obstruction or gangrene; E66.9 Obesity, unspecified; I10 Essential (primary) hypertension; Z88.0 Allergy status to penicillin; X58.XXXA Exposure to other specified factors, initial encounter; Y93.89 Activity, other specified; Z68.32 Body mass index [BMI] 32.0-32.9, adult
CPT/HCPCS: 36415; 43235; 70360; 80048; 81001; 81025; 82962; 85027; 85610; 85730; 96374; 96375; 99284; G0378; J1610; J2405; J2704; J7030

== ENCOUNTER 2019-11-30 14:42 | Emergency (ER) | payer MEDICAID ==
--- NOTE | 2019-11-30 16:12 | Event Note ---
ED Screening Note Date of service: 11/30/19 Time: 16:10 ED Screening Note: 49 y o female with pmh of atsthma present with sob and productive coughing x 3 days stating meds are not working This initial assessment/diagnostic orders/clinical plan/treatment(s) is/are subject to change based on patients health status, clinical progression and re- assessment by fellow clinical providers in the ED. Further treatment and workup at subsequent clinical providers discretion. Patient/guardian urged not to elope from the ED as their condition may be serious if not clinically assessed and managed. Initial orders include: cxr acc eval
[2019-11-30 16:14] VITALS: BP 151/85
--- NOTE | 2019-11-30 17:40 | XRay Report ---
CHEST 2 VIEWS INDICATION / CLINICAL INFORMATION: cough. COMPARISON: None available. FINDINGS: SUPPORT DEVICES: None. HEART / MEDIASTINUM: No significant abnormality. LUNGS / PLEURA: No significant pulmonary or pleural abnormality. .No pneumothorax. ADDITIONAL FINDINGS: No significant additional findings. IMPRESSION: 1. No acute findings. Signer Name: Johnny De Souza MD Signed: 11/30/2019 5:35 PM Workstation Name: [id number]
[2019-11-30] MEDS ORDERED: methylPREDNISolone Sod Succinate 125 MG/2 ML INJ IV ONE (20:18)
[2019-11-30] MEDS ORDERED: ALBUTEROL 2.5 MG/3 ML NEBU IH ONE (20:18)
[2019-11-30] MEDS ORDERED: SODIUM CHLORIDE 0.9% 1000 ML 1,000 ML IV ONE (20:18)
[2019-11-30] MEDS ORDERED: IPRATROPIUM 0.02% NEBU 2.5 ML IH ONE (20:18)
[2019-11-30] MEDS ORDERED: BENZONATATE 100 MG CAP PO ONE (20:19)
--- NOTE | 2019-11-30 20:25 | Emergency Department Report ---
ED Shortness of Breath HPI - General Chief Complaint: Dyspnea/Respdistress Stated Complaint: SENT FROM URGENT CARE/[facility]/COUGHING Time Seen by Provider: 11/30/19 19:59 Source: patient Mode of arrival: Ambulatory Limitations: No Limitations - History of Present Illness Initial Comments: 49-year-old female patient presents with history of asthma and hypertension complaints of shortness of breath, wheezing, and cough x5 days. She reports her symptoms started after a flight from [place]. She denies any leg pain/swelling, hemoptysis, history of CHF/heart issues, hormone use, recent surgery, or history of cancer. Patient states she was seen at an urgent care on Thursday and put on Levaquin for lower respiratory tract infection. She states her symptoms have not improved. She also reports her nebulizer and albuterol inhaler are not helping. Complaint: shortness of breath, cough - Related Data Previous Rx's Medication Instructions Recorded Last Taken Type Famotidine [Pepcid] 20 mg PO BID #60 tablet 07/30/19 Unknown Rx Benzonatate 200 mg PO TID PRN #30 capsule 11/30/19 Unknown Rx Levocetirizine Dihydrochloride 5 mg PO QHS #15 tablet 11/30/19 Unknown Rx [Xyzal] Prednisone [predniSONE 10 mg 10 mg PO .TAPER #1 tab.ds.pk 11/30/19 Unknown Rx (6-Day Pack, 21 Tabs)] Allergies Allergy/AdvReac Type Severity Reaction Status Date / Time Penicillins Allergy Rash Verified 11/08/18 07:58 ED Review of Systems ROS: Stated complaint: SENT FROM URGENT CARE/[facility]/COUGHING Other details as noted in HPI Constitutional: malaise. denies: chills, diaphoresis, fever, weakness Respiratory: cough, shortness of breath, SOB with exertion, SOB at rest Cardiovascular: orthopnea. denies: chest pain Gastrointestinal: denies: abdominal pain, nausea, vomiting Skin: denies: rash, lesions Neurological: denies: headache, weakness, paresthesias Hematological/Lymphatic: denies: easy bleeding ED Past Medical Hx - Past Medical History Previous Medical History?: Yes Hx Hypertension: Yes (Off her diuretic) Hx Heart Attack/AMI: No Hx Liver Disease: No Hx Renal Disease: No Hx Seizures: No Hx Asthma: Yes Hx HIV: No Additional medical history: Toxic shock - Surgical History Past Surgical History?: Yes Additional Surgical History: throat - Social History Smoking Status: Never Smoker Substance Use Type: None - Medications Home Medications: Home Medications Medication Instructions Recorded Confirmed Last Taken Type Famotidine [Pepcid] 20 mg PO BID #60 tablet 07/30/19 Unknown Rx Benzonatate 200 mg PO TID PRN #30 capsule 11/30/19 Unknown Rx Levocetirizine Dihydrochloride 5 mg PO QHS #15 tablet 11/30/19 Unknown Rx [Xyzal] Prednisone [predniSONE 10 mg 10 mg PO .TAPER #1 tab.ds.pk 11/30/19 Unknown Rx (6-Day Pack, 21 Tabs)] ED Physical Exam - General Limitations: No Limitations General appearance: alert, in no apparent distress, other (Appears u ncomfortable) - Head Head exam: Present: atraumatic, normocephalic - Eye Eye exam: Present: normal appearance - ENT ENT exam: Present: normal orophraynx, mucous membranes moist - Neck Neck exam: Present: normal inspection - Respiratory Respiratory exam: Present: wheezes, rales, rhonchi. Absent: chest wall tenderness, accessory muscle use - Cardiovascular Cardiovascular Exam: Present: normal rhythm, tachycardia (My), normal heart sounds - GI/Abdominal GI/Abdominal exam: Present: soft, normal bowel sounds. Absent: distended, tenderness - Extremities Exam Extremities exam: Present: normal inspection. Absent: calf tenderness (No swelling/edema noted bilateral) - Back Exam Back exam: Present: normal inspection - Neurological Exam Neurological exam: Present: alert, oriented X3 - Psychiatric Psychiatric exam: Present: normal affect, normal mood - Skin Skin exam: Present: warm, dry, intact, normal color. Absent: rash, cyanosis, diaphoretic, erythema ED Course Vital Signs 11/30/19 16:11 Temperature 98.7 F Pulse Rate 100 H Respiratory 20 Rate Blood Pressure 151/85 O2 Sat by Pulse 98 Oximetry ED Medical Decision Making - Lab Data Result diagrams: 11/30/19 20:10 11/30/19 20:10 Lab Results 11/30/19 11/30/19 11/30/19 Range/Units 20:10 20:10 20:26 WBC 8.0 (4.5-11.0) K/mm3 RBC 5.11 H (3.65-5.03) M/mm3 Hgb 11.8 (10.1-14.3) gm/dl Hct 37.7 (30.3-42.9) % MCV 74 L (79-97) fl MCH 23 L (28-32) pg MCHC 31 (30-34) % RDW 16.4 H (13.2-15.2) % Plt Count 292 (140-440) K/mm3 Lymph % (Auto) 13.6 (13.4-35.0) % [place] % (Auto) 9.7 H (0.0-7.3) % Eos % (Auto) 3.1 (0.0-4.3) % Baso % (Auto) 0.5 (0.0-1.8) % Lymph # 1.1 L (1.2-5.4) K/mm3 [place] # 0.8 (0.0-0.8) K/mm3 Eos # 0.2 (0.0-0.4) K/mm3 Baso # 0.0 (0.0-0.1) K/mm3 Seg Neutrophils % 73.1 H (40.0-70.0) % Seg Neutrophils # 5.8 (1.8-7.7) K/mm3 D-Dimer (0-234) ng/mlDDU Sodium 136 L (137-145) mmol/L Potassium 4.0 (3.6-5.0) mmol/L Chloride 97.9 L (98-107) mmol/L Carbon Dioxide 21 L (22-30) mmol/L Anion Gap 21 mmol/L BUN 9 (7-17) mg/dL Creatinine 0.5 L (0.7-1.2) mg/dL Estimated GFR > 60 ml/min BUN/Creatinine Ratio 18 % Glucose 105 H (65-100) mg/dL Calcium 9.1 (8.4-10.2) mg/dL Total Bilirubin 0.20 (0.1-1.2) mg/dL Direct Bilirubin < 0.2 (0-0.2) mg/dL Indirect Bilirubin 0.0 mg/dL AST 14 (5-40) units/L ALT 12 (7-56) units/L Alkaline Phosphatase 68 (35-129) units/L NT-Pro-B Natriuret Pep 91.20 (0-450) pg/mL Total Protein 7.5 (6.3-8.2) g/dL Albumin 4.3 (3.9-5) g/dL Albumin/Globulin Ratio 1.3 % HCG, Qual (Negative) 11/30/19 11/30/19 Range/Units 20:26 20:26 WBC (4.5-11.0) K/mm3 RBC (3.65-5.03) M/mm3 Hgb (10.1-14.3) gm/dl Hct (30.3-42.9) % MCV (79-97) fl MCH (28-32) pg MCHC (30-34) % RDW (13.2-15.2) % Plt Count (140-440) K/mm3 Lymph % (Auto) (13.4-35.0) % [place] % (Auto) (0.0-7.3) % Eos % (Auto) (0.0-4.3) % Baso % (Auto) (0.0-1.8) % Lymph # (1.2-5.4) K/mm3 [place] # (0.0-0.8) K/mm3 Eos # (0.0-0.4) K/mm3 Baso # (0.0-0.1) K/mm3 Seg Neutrophils % (40.0-70.0) % Seg Neutrophils # (1.8-7.7) K/mm3 D-Dimer 187.90 (0-234) ng/mlDDU Sodium (137-145) mmol/L Potassium (3.6-5.0) mmol/L Chloride (98-107) mmol/L Carbon Dioxide (22-30) mmol/L Anion Gap mmol/L BUN (7-17) mg/dL Creatinine (0.7-1.2) mg/dL Estimated GFR ml/min BUN/Creatinine Ratio % Glucose (65-100) mg/dL Calcium (8.4-10.2) mg/dL Total Bilirubin (0.1-1.2) mg/dL Direct Bilirubin (0-0.2) mg/dL Indirect Bilirubin mg/dL AST (5-40) units/L ALT (7-56) units/L Alkaline Phosphatase (35-129) units/L NT-Pro-B Natriuret Pep (0-450) pg/mL Total Protein (6.3-8.2) g/dL Albumin (3.9-5) g/dL Albumin/Globulin Ratio % HCG, Qual Negative (Negative) - Radiology Data Radiology results: report reviewed CHEST 2 VIEWS INDICATION / CLINICAL INFORMATION: cough. COMPARISON: None available. FINDINGS: SUPPORT DEVICES: None. HEART / MEDIASTINUM: No significant abnormality. LUNGS / PLEURA: No significant pulmonary or pleural abnormality. .No pneumothorax. ADDITIONAL FINDINGS: No significant additional findings. IMPRESSION: 1. No acute findings. - Medical Decision Making Patient with history of asthma here for shortness of breath, coughing, and wheezing for the past 5 days. Patient was placed on Levaquin 750 mg on Thursday and has taken 3 doses without her symptoms improving. CBC and CMP are normal. BNP and d-dimer are normal. Chest x-ray is negative for acute abnormalities. Patient denies history of intubations for asthma. She states her symptoms have improved with the hour-long DuoNeb and Solu-Medrol given. Heart rate is mildly elevated at 110, likely due to nebulizer treatment. Pulse ox is normal and patient is afebrile. She is well-appearing and stable for discharge home. Advised patient to finish Levaquin for possible bacterial asthmatic bronchitis. Prescription for prednisone given. Patient reports she has plenty of albuterol HFA in albuterol for her nebulizer. Recommend nebulizer treatments at least 3 times daily. Also advised Mucinex with high water intake. Patient to follow-up with her primary care provider within 3 days. Discussed strict return precautions in detail with patient who verbalizes understanding. Critical care attestation.: If time is entered above; I have spent that time in minutes in the direct care of this critically ill patient, excluding procedure time. ED Disposition Clinical Impression: Acute asthmatic bronchitis Disposition: DC-01 TO HOME OR SELFCARE Is pt being admited?: No Condition: Stable Instructions: Acute Bronchitis (ED) Prescriptions: Levocetirizine Dihydrochloride [Xyzal] 5 mg PO QHS #15 tablet Benzonatate 200 mg PO TID PRN #30 capsule PRN Reason: Cough Prednisone [predniSONE 10 mg (6-Day Pack, 21 Tabs)] 10 mg PO .TAPER #1 tab.ds.pk Referrals: PRIMARY CARE, [Primary Care Provider] - 3-5 Days Forms: Work/School Release Form(ED)
[2019-11-30 20:32] LABS: Basophils % (Auto) 0.5 % (0.0-1.8); Eosinophils # (Auto) 0.2 K/mm3 (0.0-0.4); Eosinophils % (Auto) 3.1 % (0.0-4.3); Hematocrit 37.7 % (30.3-42.9); Hemoglobin 11.8 gm/dl (10.1-14.3); Lymphocytes # (Auto) 1.1 K/mm3 (1.2-5.4); Lymphocytes % (Auto) 13.6 % (13.4-35.0); Mean Corpuscular HGB Conc 31 % (30-34); Mean Corpuscular Volume 74 fl (79-97); Monocytes # (Auto) 0.8 K/mm3 (0.0-0.8); Monocytes % (Auto) 9.7 % (0.0-7.3); Platelet Count 292 K/mm3 (140-440); Red Blood Count 5.11 M/mm3 (3.65-5.03); Red Cell Distribution Width 16.4 % (13.2-15.2)
[2019-11-30 20:49] LABS: BUN/Creatinine Ratio 18; Blood Urea Nitrogen 9 mg/dL (7-17); Calcium 9.1 mg/dL (8.4-10.2); Hemolysis Index 86
[2019-11-30 20:54] LABS: Alanine Aminotransferase 12 units/L (7-56); Albumin 4.3 g/dL (3.9-5)
[2019-11-30 20:55] LABS: Bilirubin,Direct < 0.2 mg/dL (0-0.2)
[2019-11-30] MEDS ORDERED: dexAMETHasone 20 MG/5 ML VIAL IV ONE (22:40)
== END 2019-11-30 22:52 | disposition home or self-care (01) ==
LOC: ED 14:42
DX: J45.909 Unspecified asthma, uncomplicated (principal); I10 Essential (primary) hypertension; A48.3 Toxic shock syndrome; Z98.890 Other specified postprocedural states; Z88.0 Allergy status to penicillin; Z79.899 Other long term (current) drug therapy
CPT/HCPCS: 36415; 71046; 80048; 80076; 83880; 84703; 85025; 85379; 94640; 96374; 96375; 99284; J1100; J2930; J7030